=== PATIENT | female | born 1940 | race Caucasian/White ===

== ENCOUNTER 2018-04-15 09:20 | Emergency (ER) | payer MEDICARE ==
[~2018-04-15] VITALS: Ht 172.7 cm; Wt 61.2 kg
[~2018-04-15 09:20] MED LIST: LISINOPRIL10 MG PO
--- NOTE | 2018-04-15 10:15 | NUR ---
DR PADILLA AT BEDSIDE FOR PATIENT EVAL.
[2018-04-15] MEDS ORDERED: MECLIZINE HCL 12.5 MG TAB PO ONE (10:45)
[2018-04-15 10:59] LABS: BASOPHILS % 0.3 % (0.0-1.0); EOSINOPHILS % 0.4 % (0.0-6.0); HEMATOCRIT 30.3 % (34.2-44.1); HEMOGLOBIN 10.5 g/dL (12.0-16.0); LYMPHOCYTES # (AUTO) 0.8 (1.0-3.2); LYMPHOCYTES % 9.9 % (18.0-39.1); MEAN CORPUSCULAR HEMOGLOBIN 27.2 pg (28-32); MEAN CORPUSCULAR HGB CONC 34.7 g/dL (31-35); MEAN CORPUSCULAR VOLUME 78.5 fL (81-99); MONOCYTES # (AUTO) 0.5 (0.2-0.8); MONOCYTES % 6.1 % (4.4-11.3); NEUTROPHILS # (AUTO) 6.5 (2.1-6.9); NEUTROPHILS % 82.9 % (38.7-80.0); PLATELET COUNT 348 x10e3/uL (140-360); RED BLOOD COUNT 3.86 x10e6/uL (3.6-5.1); RED CELL DISTRIBUTION WIDTH 13.6 % (11.7-14.4)
[2018-04-15 11:23] LABS: BLOOD UREA NITROGEN 11 mg/dL (7-26); BUN/CREATININE RATIO 14 (6-25); CALCIUM 9.3 mg/dL (8.4-10.2); CARBON DIOXIDE 24 mmol/L (22-29); CHLORIDE 103 mmol/L (98-107); CREATINE KINASE 28 IU/L (29-168); CREATININE, SERUM 0.76 mg/dL (0.57-1.11); EST GLOMERULAR FILTRATION RATE > 60 ML/MIN (60-); GLUCOSE 110 mg/dL (74-118); SODIUM 138 mmol/L (136-145)
[2018-04-15 13:21] VITALS: BP 135/80
== END 2018-04-15 13:23 | disposition home or self-care (01) ==
LOC: ER 09:20
DX: R42 Dizziness and giddiness (principal); R11.0 Nausea; H81.13 Benign paroxysmal vertigo, bilateral
CPT/HCPCS: 36415; 80048; 82550; 82553; 84484; 85025; 93005; 99284

== ENCOUNTER 2019-05-17 13:34 | Emergency (ER) | payer MEDICARE ==
[~2019-05-17] VITALS: Ht 172.7 cm; Wt 61.2 kg
[2019-05-17] MEDS ORDERED: SODIUM CHLORIDE 0.9% 1000ML 1,000 ML ONE (13:49)
[2019-05-17] MEDS ORDERED: ONDANSETRON HCL INJ 2MG/ML 2ML 2 MG/ML VIAL ONE (13:49)
[2019-05-17] MEDS ORDERED: MECLIZINE HCL 12.5 MG TAB ONE (13:50)
[2019-05-17] MEDS ORDERED: FAMOTIDINE 20 MG/2 ML VIAL IV ONE (13:50)
[2019-05-17] MEDS ORDERED: FAMOTIDINE 20 MG/2 ML VIAL IV STA (14:17)
[2019-05-17] MEDS ORDERED: ONDANSETRON HCL INJ 2MG/ML 2ML 2 MG/ML VIAL IV STA (14:17)
[2019-05-17] MEDS ORDERED: MECLIZINE HCL 12.5 MG TAB PO PRN (14:30)
[2019-05-17] MEDS ORDERED: SODIUM CHLORIDE 0.9% 1000ML 1,000 ML IV ONE (14:30)
--- NOTE | 2019-05-17 15:36 | NUR ---
rx called in for pt [phone]
== END 2019-05-17 15:38 | disposition home or self-care (01) ==
LOC: FSED 13:34
DX: H81.11 Benign paroxysmal vertigo, right ear (principal); R11.0 Nausea; I10 Essential (primary) hypertension; E03.9 Hypothyroidism, unspecified; Z87.891 Personal history of nicotine dependence
CPT/HCPCS: 80053; 81003; 82553; 84484; 85025; 93005; 99284; J2405; J7030; J8597

== ENCOUNTER → 2020-03-22 | Outpatient (CLI) | payer OTHER ==
[~2020-03-22] MED LIST changes: +COVID-19 VACC, MRNA(MODERNA)/PF 100 MCG/0.5 ML VIAL IM ONE
== END ==
LOC: VACCPMC 16:00
DX: Z23 Encounter for immunization (principal); Z20.822 Contact with and (suspected) exposure to COVID-19

== ENCOUNTER → 2020-04-26 | Outpatient (CLI) | payer OTHER | END | DRG 951 | LOC: VACCPMC 09:05 | DX: Z23 Encounter for immunization (principal); Z20.822 Contact with and (suspected) exposure to COVID-19 | CPT/HCPCS: 0012A; 91301 ==

== ENCOUNTER → 2021-01-18 | Outpatient (CLI) | payer MEDICARE, OTHER | LOC: VACCPMC 09:00 | DX: Z23 Encounter for immunization (principal); Z20.822 Contact with and (suspected) exposure to COVID-19 ==

== ENCOUNTER 2022-04-07 12:31 | Emergency (ER) | payer MEDICARE ==
[~2022-04-07] VITALS: Ht 172.7 cm; Wt 44.5 kg
[~2022-04-07 12:31] MED LIST changes: -COVID-19 VACC, MRNA(MODERNA)/PF 100 MCG/0.5 ML VIAL IM ONE
[2022-04-07] MEDS ORDERED: ACETAMINOPHEN 1000 MG/100 ML 100 ML IV ONE (13:07)
[2022-04-07] MEDS ORDERED: LEVOTHYROXINE50 MCG PO (13:17)
[2022-04-07] MEDS ORDERED: KETOROLAC TROMETHAMINE 30 MG/ML VIAL IM SCH (13:30)
[2022-04-07] MEDS ORDERED: KETOROLAC TROMETHAMINE 30 MG/ML VIAL ONE (14:50)
[2022-04-07] MEDS ORDERED: NAPROXEN375 MG PO (14:58)
== END 2022-04-07 15:02 | disposition home or self-care (01) ==
LOC: FSED 12:35
DX: M25.521 Pain in right elbow (principal); M25.551 Pain in right hip; M25.562 Pain in left knee; M25.561 Pain in right knee; M19.09 Primary osteoarthritis, other specified site; I10 Essential (primary) hypertension; E03.9 Hypothyroidism, unspecified
CPT/HCPCS: 73080; 73521; 73562 ×2; 96372; 99283; J0131; J1885

== ENCOUNTER 2022-04-10 10:35 | Emergency (ER) | payer MEDICARE ==
[~2022-04-10] VITALS: Ht 172.7 cm; Wt 44.5 kg
[~2022-04-10 10:35] MED LIST changes: +LEVOTHYROXINE50 MCG PO; +NAPROXEN375 MG PO
[2022-04-10] MEDS ORDERED: KETOROLAC TROMETHAMINE 30 MG/ML VIAL IV STA (11:14)
[2022-04-10] MEDS ORDERED: KETOROLAC TROMETHAMINE 30 MG/ML VIAL ONE (11:17)
== END 2022-04-10 11:07 | disposition home or self-care (01) ==
LOC: FSED 10:45
DX: M02.39 Reiter's disease, multiple sites (principal); I10 Essential (primary) hypertension; E03.9 Hypothyroidism, unspecified; Z88.6 Allergy status to analgesic agent; Z79.899 Other long term (current) drug therapy
CPT/HCPCS: 96372; 99283; J1885

== ENCOUNTER 2022-04-13 13:06 | Emergency (ER) | payer MEDICARE ==
[~2022-04-13] VITALS: Ht 172.7 cm; Wt 44.5 kg
== END 2022-04-13 14:47 | disposition home or self-care (01) ==
LOC: FSED 13:09
DX: M25.521 Pain in right elbow (principal); M19.021 Primary osteoarthritis, right elbow; G56.31 Lesion of radial nerve, right upper limb; M54.2 Cervicalgia; M25.511 Pain in right shoulder; I10 Essential (primary) hypertension; E03.9 Hypothyroidism, unspecified
CPT/HCPCS: 72040; 99283